=== PATIENT | male | born 1965 | race Caucasian/White ===

== ENCOUNTER 2016-11-11 15:54 | Inpatient (IN) | payer BC, OTHER ==
[2016-11-11] MEDS ORDERED: ALBUTEROL SULFATE/IPRATROPIUM 3 ML NEBU IH ONE (16:17)
--- NOTE | 2016-11-11 16:18 | ERNOTE ---
Date of Service: 11/11/16 Time Seen by Provider: 11/11/16 16:08 Stated Complaint: UPPER RESPI Presenting Symptoms:: cough Source: patient, family, RN notes reviewed Exam Limitations: no limitations Immunizations: IMMUNIZATION HX Immunizations Up to Date Yes History of Influenza Vaccine No Allergies/Adverse Reactions: Allergies No Known Allergies Allergy (Unverified 11/11/16 16:06) Home Medications: HOME MEDICATIONS NK [No Home Medication] 11/11/16 [Last Taken Unknown] - History of Present Ilness Narrative: 51 y/o male brought to the ED by his for a cough and difficulty breathing that began 6 days ago, but has become much worse today. He reports having a "cold" since 11/05 with nasal congestion, fatigue, cough and headache. He took a shower just before coming in today. This is when he became much more dyspneic and began having some chest heaviness. He has not taken any OTC meds for his symptoms today. He did take sudaphed and and Tylenol yesterday. He is a nonsmoker and takes no routine medications. 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 Date (Duration): 11/05/16 Timing: getting worse Severity: severe Frequency/Possible Cause: Reports: unknown cause Modifying Factors - Improves: Reports: rest Modifying Factors - Worsens: Reports: activity Associated Symptoms: Reports: chest pain/soreness, cough, shortness of breath, nasal congestion, nasal drainage, headache. Denies: wheezing, earache, sore throat, muscle aches, fever/chills Prior Treatment: Denies: recently seen Review of Systems - Review of Systems Constitutional: Present: fatigue, malaise. Absent: fever, chills EYE: Present: no symptoms reported ENT: Present: See HPI Respiratory: Present: See HPI Cardiology: Absent: palpitations, edema, claudication Gastrointestinal/Abdominal: Absent: nausea, vomiting, diarrhea, abdominal pain Genitourinary: Present: no symptoms reported Musculoskeletal: Present: See HPI Skin: Absent: rash, lesions, change in color Neurological: Absent: weakness, numbness, tingling Endocrine: Present: no symptoms reported Hematologic/Lymphatic: Present: no symptoms reported Psych: Absent: anxiety - Patient's Past Medical History Patient History - Medical: No pertinent hx Patient History - Cardiac/Respiratory: CVA/Stroke Patient History - Cancer: No Hx of Cancer Patient History - Surgical Procedures: Other - Repair of ASD - Social History Living Situations: spouse Does anyone smoke in the home?: No Smoking Status: Never smoker Alcohol Use: none Drug Use: none - Immunizations Immunizations Up to Date: Yes History of Influenza Vaccine: No Physical Exam - Physical Exam General Appearance: Present: wd/wn, alert, moderate distress, obese Ears, Nose, Throat: Present: hearing grossly normal, nasal congestion, pharyngeal erythema - mild. Absent: abnormal TM (R), abnormal TM (L), sinus pain/drainage Neck: Present: normal inspection, nontender, supple Respiratory: Present: chest nontender, respiratory distress, accessory muscle use, decreased breath sounds - d/t large body habitus. Absent: crackles, wheezing Cardiovascular/Chest: Present: no murmur, normal peripheral pulses, tachycardia Peripheral Pulses: N=norm/S=strong/W=weak/B=bound/A=absent: Dorsalis-pedis (R): Normal, Dorsalis-pedis (L): Normal Extremity Exam: Present: non-tender, normal range of motion, pedal edema - mild bilateral Neurological Exam: Present: alert, oriented, normal mood/affect, no motor/ sensory deficits Skin Exam: Present: warm/dry, other - grayish, dusky appearance ED Progress - Results and Orders Patient's Lab Results:: I have reviewed the patient's lab results. - Vital Signs Patient's Vital Signs:: I have reviewed the patient's vital signs. Vital Signs: Vital Signs 11/11/16 16:02 Temperature 36.7 C Pulse Rate 124 H Respiratory 20 Rate Blood Pressure 131/77 O2 Sat by Pulse 89 L Oximetry - EKG EKG: nonspecific ST T wave changes, other - Sinus tach - 117 EKG read: Interp. by me - X-Ray X-Ray #1 X-Ray: chest Interpretation: Interp. by me X-ray Comments: No focal consolidation or infiltrate, heart size appears somewhat large - CT/Ultrasound CT/Ultrasound Narrative: Chest CTA shows bilateral pulmonary emboli and "patchy ground glass opacities" per [facility] preliminary report called at 1811. - Progress/Reassessment Chief Complaint: Upper Respiratory Symptoms Progress:: Improved Plan - Plan Plan: Dr. Howard contacted regarding admission - patient to be observation status with anticoagulation for pulmonary emboli. Also to have repeat troponin as his initial was elevated at 0.258. Patient states he is feeling better since he has been receiving oxygen. Departure - Departure Clinical Impression: Elevated troponin, Acute dyspnea Pulmonary emboli Qualifiers: Pulmonary embolism type: other Chronicity: acute Acute cor pulmonale presence: without acute cor pulmonale Qualified Code(s): I26.99 - Other pulmonary embolism without acute cor pulmonale Disposition: [facility] Condition: Stable
--- OUTSIDE RECORDS SUMMARY | 2016-11-11 16:22 | XMS REPORT | Continuity of Care Document ---
:1965 Author Organization [facility] ([facility]) Address [address] [place] [address] Phone [phone] Care Team Providers Name Role Phone Unavailable Primary Care Provider Unavailable Source Comments This disclosure is being made pursuant to the Care Everywhere program, applicable federal and state laws, and may not contain all informaitonavailable regarding this patient.[facility] ([facility]) Active Allergies and Adverse Reactions Not on File Current Medications Not on file Active Problems Not on file Social History Tobacco Use Types Packs/Day Years Used Date Never Assessed Plan of Care Health Maintenance Due Date Last Done Comments HCV Screening 1965 Hepatitis B Vaccine (1 of 3 - Primary Series) 1965 Tdap Vaccine 1974 Lipid Disorder Screening 1981 MMR Vaccine 1981 Td Vaccine 1981 Colonoscopy 03/11/2013 Prostate Cancer Screening 2013 Influenza Vaccine: Seasonal (#1) 04/16/2016 Results from Last 3 Months Not on file
[2016-11-11 16:32] LABS: Hematocrit 50.1 % (42.0-52.0); Hemoglobin 16.8 gm/dL (13.5-18.0); Mean Cell Volume 84.6 fl (78-100); Mean Corpuscular Hemoglobin 28.4 pg (27-31); Mean Corpuscular Hgb Conc 33.5 g/dl (32-36); Mean Platelet Volume 9.6 fl (6.0-9.5); Neutrophil % 83.6 % (42-75.0); Platelet Count 125 K/mm3 (150-450); Red Blood Count 5.92 M/mm3 (4.7-6.0); Red Cell Distribution Width 12.7 % (11.5-14.0); White Blood Count 11.9 K/mm3 (4.0-10.5)
[2016-11-11 16:49] LABS: Albumin * 3.9 gm/dl (3.4-5.0); Anion Gap 15.5 mmol/L (6.8-13.8); BUN/Creatinine Ratio 8.7 (9.0-21.6); Bilirubin, Total 0.6 mg/dL (0.0-1.1); Ca. Corrected For Albumin 8.5 mg/dL (8.4-10.2); Calcium * 8.7 mg/dL (7.9-10.9); Carbon Dioxide 25.3 mmol/L (24-32.6); Potassium 3.8 mmol/L (3.4-4.6); Total Protein 7.8 gm/dL (6.2-8.2)
[2016-11-11 16:50] LABS: Troponin I 0.258 ng/ml (0.00-0.10)
[2016-11-11] MEDS ORDERED: MORPHINE SULFATE 2 MG/ML DISP.SYRIN IV ONE (16:58)
[2016-11-11] MEDS ORDERED: ONDANSETRON HCL/PF 2 MG/ML VIAL IV ONE (16:58)
[2016-11-11] MEDS ORDERED: ASPIRIN 81 MG TAB.CHEW PO ONE (16:59)
[2016-11-11] MEDS ORDERED: ONDANSETRON HCL/PF 2 MG/ML VIAL ONE (17:04)
[2016-11-11] MEDS ORDERED: MORPHINE SULFATE 2 MG/ML DISP.SYRIN ONE (17:04)
[2016-11-11] MEDS ORDERED: ASPIRIN 81 MG TAB.CHEW ONE (17:05)
[2016-11-11 17:12] LABS: Prothrombin Time (Patient) 11.2 Seconds (9.4-11.4)
[2016-11-11 17:14] LABS: INR 1.08 INR (0.90-1.10); Partial Thrombolplastin Time 25.9 Seconds (24-32)
[2016-11-11] MEDS ORDERED: HEPARIN SODIUM,PORCINE/D5W 25,000 UNITS/500 ML BAG IV PRN ×2 (18:33→19:10)
[2016-11-11] MEDS ORDERED: HEPARIN SODIUM,PORCINE 5,000 UNITS/ML VIAL ONE ×2 (18:46→18:58)
[2016-11-11] MEDS ORDERED: HEPARIN SODIUM,PORCINE/D5W 25,000 UNITS/500 ML BAG IV ONE (18:47)
--- OUTSIDE RECORDS SUMMARY | 2016-11-11 18:47 | XMS REPORT | Continuity of Care Document ---
:1965 Author Organization [facility] ([facility]) Address [address] [place] [address] Phone [phone] Care Team Providers Name Role Phone Unavailable Primary Care Provider Unavailable Source Comments This disclosure is being made pursuant to the Care Everywhere program, applicable federal and state laws, and may not contain all informaitonavailable regarding this patient.[facility] ([facility]) Active Allergies and Adverse Reactions Not [...]
[2016-11-11] MEDS: HEPARIN SODIUM,PORCINE 5,000 UNITS/ML VIAL IV ONE ×2 (19:01→19:21)
[2016-11-11] MEDS ORDERED: HEPARIN SODIUM,PORCINE 10,000 UNITS/ML VIAL IV ONE (19:03)
[2016-11-11] MEDS ORDERED: HEPARIN SODIUM,PORCINE/D5W 25,000 UNITS/500 ML BAG IV SCH (19:30)
[2016-11-11] MEDS ORDERED: NORMAL SALINE 1,000 ML IV PRN (20:18)
--- NOTE | 2016-11-11 20:53 | HP ---
<Ruth Wood - Last Filed: 11/11/16 23:18> Chief Complaint - Chief Complaint Date of Service: 11/11/16 Time of Service: 20:46 Chief Complaint: " SOB". Source of HPI-Pt; reliable, Pt's spouse AmitaRAYA report. History of Present Illness: Mr. Osorio is a 51-yr-old WM pt who has no pertinent medical history except for CVA at age 20 secondary to Atrial Septal defect. He later had an Open Heart Surgery at age 25 to repair the defect. Pt states that for the last 1 month, he has struggled with URI symptoms "on and off." On Saturday, the symptoms came back and were mostly accompanied with headaches, nasal congestion and drainage and are still going on. He took a 'day off ' from work on Saturday but he was able to report to work the rest of the days. On Saturday, he sat around most of the day as he was not feeling any better. Today at about 1 pm after taking a shower, he suddenly felt extremely SOB. It was severe enough that he chose to come to the [facility] ER. He denies the associated symptoms of N/V, Diaphoresis Palpitations and Chest Pain. He is a non- smoker and denies being on any new medications. He has not had any recent surgery procedure and denies any travelling that involves prolong sitting. Family history is negative for clotting factor disease. is at bedside and she stated that he believes pt has Sleep Apnea. She reports that pt has been sleeping on the recliner for about 2 yrs. Pt states that he has a deviated septum which prevents him from sleeping well on the bed. also reports that he does have snoring at night. During evaluation at the ED, he was noted to have an elevated D-Dimer of 9.47. The CT of the chest revealed he had Reginald. Pulmonary Embolism. His Troponin was elevated at 0.258 and the EKG showed Sinus Tachycardia without ST-T wave changes. Pt will need to be admitted to inpatient status for a minimum of 2 midnights or more due to Reginald. Pulmonary Embolism. - Patient's Past Medical History Patient History - Medical: No pertinent hx Patient History - Cardiac/Respiratory: CVA/Stroke, Other Patient History - Cancer: No Hx of Cancer Patient History - Surgical Procedures: Other Patient History - Other: None - Family History Father Family History - Medical: , Diabetes Type 2 Insulin Dependent Family History - Cardiac/Respiratory: No pertinent hx Family History - Cancer: No pertinent family hx Mother Family History - Medical: No pertinent hx Family History - Cardiac/Respiratory: Atrial Fibrillation Family History - Cancer: No pertinent family hx - Social History Living Situations: spouse Abuse History: No History of abuse Psych History: No pertinent hx Does anyone smoke in the home?: No Smoking Status: Never smoker Have you smoked in the past 12 months: No Do you dip or chew tobacco: No Alcohol Use: none Drug Use: none - Immunizations Immunizations Up to Date: Yes Hx Pneumococcal Vaccination: No History of Influenza Vaccine: No Review Of Systems (GEN) - Review of Systems Generalized/Overall Review: Absent: Weakness, Chills, Fever, Diaphoresis EENTM: Absent: Eye Pain, Blurred Vision, Double Vision, Nose Congestion Respiratory: Present: Shortness of Breath. Absent: Cough Cardiac: Absent: Chest Pain, Edema, Syncope Abdominal: Absent: Nausea, Vomiting, Abdominal Pain, Diarrhea Genitourinary: Present: Frequency. Absent: Burning, Itching, Urgency Musculoskeletal: Absent: Joint Pain, Back Pain, Joint Swelling, Muscle Pain, Neck Pain Neurological: Present: Headache. Absent: Anxiety, Emotional Problems Skin: Absent: Dryness, Lesions, Lumps Endocrine: Absent: Intolerance to Cold, Intolerance to Heat, Increased Thirst Misc: All systems neg except as marked Immunizations: IMMUNIZATION HX Immunizations Up to Date Yes History of Influenza Vaccine No Allergies/Adverse Reactions: Allergies Allergy/AdvReac Type Severity Reaction Status Date / Time No Known Allergies Allergy Unverified 11/11/16 16:06 Home Medications: HOME MEDICATIONS NK [No Home Medication] 11/11/16 [Last Taken Unknown] Exam - Exam Vital Signs: Vital Signs - Last Taken Temp 37.0 C 11/11/16 20:16 Pulse 116 H 11/11/16 20:16 Resp 22 H 11/11/16 20:16 BP 137/82 11/11/16 20:16 Pulse Ox 93 11/11/16 20:16 Constitutional: Present: Alert, Oriented x3, No distress ENT Exam: Present: normal ENT inspection, hearing grossly normal, nasal congestion, nasal drainage. Absent: dry mucous membranes Eye Exam: bilateral eye: normal inspection, PERRL Neck: Present: full range of motion, supple, normal inspection Back Exam: Present: no CVA tenderness Breasts: Present: Exam deferred Respiratory: Present: lungs clear, no accessory muscle use, No wheezing Cardiovascular/Chest: Present: normal peripheral pulses, regular rate, rhythm, no murmur Abdomen: Present: Normal bowel sounds, soft, nontender /Rectal: Present: Exam deferred Extremity: Present: normal range of motion, normal inspection, no pedal edema Skin Exam: Present: warm/dry, no cyanosis, cool/dry Lymphatic: Present: no adenopathy Neurologic: Present: no motor/sensory deficits, alert, oriented x 3 Appearance: Present: appropriate appearance, appropriate insight Eye contact: Present: cooperative, good eye contact, normal speech Thoughts: Present: normal thought pattern, no apparent hallucination Diagnostic Studies: Laboratory Results WBC 11.9 K/mm3 (4.0-10.5) H 11/11/16 16:20 RBC 5.92 M/mm3 (4.7-6.0) 11/11/16 16:20 Hgb 16.8 gm/dL (13.5-18.0) 11/11/16 16:20 Hct 50.1 % (42.0-52.0) 11/11/16 16:20 MCV 84.6 fl (78-100) 11/11/16 16:20 MCH 28.4 pg (27-31) 11/11/16 16:20 MCHC 33.5 g/dl (32-36) 11/11/16 16:20 RDW 12.7 % (11.5-14.0) 11/11/16 16:20 Plt Count 125 K/mm3 (150-450) L 11/11/16 16:20 MPV 9.6 fl (6.0-9.5) H 11/11/16 16:20 Immature Gran % (Auto) 0.40 % (0.001-0.429) 11/11/16 16:20 Immature Gran # (Auto) 0.05 K/mm3 (0.000-0.0310) H 11/11/16 16:20 Neutrophils % 83.6 % (42-75.0) H 11/11/16 16:20 Lymphocytes % 8.9 % (20-51) L 11/11/16 16:20 Monocytes % 6.6 % (0.0-9) 11/11/16 16:20 Eosinophils % 0.2 % (0.0-3.0) 11/11/16 16:20 Basophils % 0.3 % (0.0-1.0) 11/11/16 16:20 Nucleated RBC % 0.0 k/mm3 (0-1) 11/11/16 16:20 Neutrophils # 10.0 K/mm3 (1.3-6.0) H 11/11/16 16:20 Lymphocytes # 1.1 k/mm3 (1.5-3.5) L 11/11/16 16:20 Monocytes # 0.8 k/mm3 (0.0-1.0) 11/11/16 16:20 Eosinophils # 0.0 k/mm3 (0.0-0.7) 11/11/16 16:20 Absolute Basophils 0.0 k/mm3 (0.0-0.1) 11/11/16 16:20 PT 11.2 Seconds (9.4-11.4) 11/11/16 16:26 INR (Anticoag Therapy) 1.08 INR (0.90-1.10) 11/11/16 16:26 PTT (Ricky) 25.9 Seconds (24-32) 11/11/16 16:26 D-Dimer 9.47 mg/L (0.19-0.49) H 11/11/16 16:20 Sodium 139 mmol/L (132-142) 11/11/16 16:20 Plasma Sodium 140 mmol/L (130-142) 11/11/16 16:20 Potassium 3.8 mmol/L (3.4-4.6) 11/11/16 16:20 Chloride 102 mmol/L (97-106) 11/11/16 16:20 Carbon Dioxide 25.3 mmol/L (24-32.6) 11/11/16 16:20 Anion Gap 15.5 mmol/L (6.8-13.8) H 11/11/16 16:20 BUN 12 mg/dL (6-23) 11/11/16 16:20 Creatinine 1.38 mg/dL (0.4-1.4) 11/11/16 16:20 Est GFR (Non-Af Amer) 57 mL/min (60-130) L 11/11/16 16:20 BUN/Creatinine Ratio 8.7 (9.0-21.6) L 11/11/16 16:20 Random Glucose 174 mg/dL (70-110) H 11/11/16 16:20 Calcium 8.7 mg/dL (7.9-10.9) 11/11/16 16:20 Calcium Adj for Albumin 8.5 mg/dL (8.4-10.2) 11/11/16 16:20 Total Bilirubin 0.6 mg/dL (0.0-1.1) 11/11/16 16:20 AST 25 U/L (0-48) 11/11/16 16:20 ALT 52 U/L (19-67) 11/11/16 16:20 Alkaline Phosphatase 134 U/L (50-170) 11/11/16 16:20 Troponin I 0.258 ng/ml (0.00-0.10) H* 11/11/16 16:20 Total Protein 7.8 gm/dL (6.2-8.2) 11/11/16 16:20 Albumin 3.9 gm/dl (3.4-5.0) 11/11/16 16:20 Influenza Type A Ag Negative (NEGATIVE) 11/11/16 16:30 Influenza Type B Ag Negative (NEGATIVE) 11/11/16 16:30 Assessment/Plan - Assessment/Plan (1) Bilateral pulmonary embolism Assessment: Pt noted to be tachycardic, and tachypneic on presentation. NO HISTORY: of Recent surgery, new medications, Prolonged traveling causing extended immobilization. Family History negative for Clotting factor disease. who is an RN reported pt may have sleep apnea and snores at night- he has not slept in bed for 2 yrs and sleeps mostly on the recliner. He report having deviated septum. The work up evaluation showed Elevated D-dimer of 9.47. The CT of the chest findings - Extensive Bilateral arterial Emboli . Received treatment at the ED with Heparin Bolus and Hep gtt initiated. Remained hemodynamically stable. He required oxygen to keep pox > 90%. Admitted to [facility] floor floor under remote telemetry monitoring and continued anticoagulation therapy. Problem: Acute (2) Elevated troponin level Assessment: Pt is noted to be obese. Has past cardiac medical history involving: CVA at age 20 secondary to Atrial Septal defect. He later had an Open Heart Surgery at age 25 to repair the defect. The first troponin was elevated at 0.258 at 16.20, the second troponin was elevated at 0.555 at 21.30. Both EKGs at 1630 & [address]-T wave changes. The second elevated Troponin along with CT findings showing Reginald. Pulm. arterial Emboli causing a Rt Heart strain were concerning enough for pt to be transferred to a higher level of tertiary care center as he may need surgical intervention to reduce the thrombus burden. Problem: Acute <Frank Simon - Last Filed: 11/15/16 16:44> Immunizations: IMMUNIZATION HX Immunizations Up to Date Yes History of Influenza Vaccine No Hx Pneumococcal Vaccination No Exam - Exam Vital Signs: Vital Signs - Last Taken Temp 37.0 C 11/11/16 22:46 Pulse 102 H 11/11/16 22:46 Resp 18 11/11/16 22:46 BP 116/85 11/11/16 22:46 Pulse Ox 94 11/11/16 22:46 Diagnostic Studies: Laboratory Results WBC 11.9 K/mm3 (4.0-10.5) H 11/11/16 16:20 RBC 5.92 M/mm3 (4.7-6.0) 11/11/16 16:20 Hgb 16.8 gm/dL (13.5-18.0) 11/11/16 16:20 Hct 50.1 % (42.0-52.0) 11/11/16 16:20 MCV 84.6 fl (78-100) 11/11/16 16:20 MCH 28.4 pg (27-31) 11/11/16 16:20 MCHC 33.5 g/dl (32-36) 11/11/16 16:20 RDW 12.7 % (11.5-14.0) 11/11/16 16:20 Plt Count 125 K/mm3 (150-450) L 11/11/16 16:20 MPV 9.6 fl (6.0-9.5) H 11/11/16 16:20 Immature Gran % (Auto) 0.40 % (0.001-0.429) 11/11/16 16:20 Immature Gran # (Auto) 0.05 K/mm3 (0.000-0.0310) H 11/11/16 16:20 Neutrophils % 83.6 % (42-75.0) H 11/11/16 16:20 Lymphocytes % 8.9 % (20-51) L 11/11/16 16:20 Monocytes % 6.6 % (0.0-9) 11/11/16 16:20 Eosinophils % 0.2 % (0.0-3.0) 11/11/16 16:20 Basophils % 0.3 % (0.0-1.0) 11/11/16 16:20 Nucleated RBC % 0.0 k/mm3 (0-1) 11/11/16 16:20 Neutrophils # 10.0 K/mm3 (1.3-6.0) H 11/11/16 16:20 Lymphocytes # 1.1 k/mm3 (1.5-3.5) L 11/11/16 16:20 Monocytes # 0.8 k/mm3 (0.0-1.0) 11/11/16 16:20 Eosinophils # 0.0 k/mm3 (0.0-0.7) 11/11/16 16:20 Absolute Basophils 0.0 k/mm3 (0.0-0.1) 11/11/16 16:20 PT 11.2 Seconds (9.4-11.4) 11/11/16 16:26 INR (Anticoag Therapy) 1.08 INR (0.90-1.10) 11/11/16 16:26 PTT (Ricky) 25.9 Seconds (24-32) 11/11/16 16:26 D-Dimer 9.47 mg/L (0.19-0.49) H 11/11/16 16:20 Sodium 139 mmol/L (132-142) 11/11/16 16:20 Plasma Sodium 140 mmol/L (130-142) 11/11/16 16:20 Potassium 3.8 mmol/L (3.4-4.6) 11/11/16 16:20 Chloride 102 mmol/L (97-106) 11/11/16 16:20 Carbon Dioxide 25.3 mmol/L (24-32.6) 11/11/16 16:20 Anion Gap 15.5 mmol/L (6.8-13.8) H 11/11/16 16:20 BUN 12 mg/dL (6-23) 11/11/16 16:20 Creatinine 1.38 mg/dL (0.4-1.4) 11/11/16 16:20 Est GFR (Non-Af Amer) 57 mL/min (60-130) L 11/11/16 16:20 BUN/Creatinine Ratio 8.7 (9.0-21.6) L 11/11/16 16:20 Random Glucose 174 mg/dL (70-110) H 11/11/16 16:20 Calcium 8.7 mg/dL (7.9-10.9) 11/11/16 16:20 Calcium Adj for Albumin 8.5 mg/dL (8.4-10.2) 11/11/16 16:20 Total Bilirubin 0.6 mg/dL (0.0-1.1) 11/11/16 16:20 AST 25 U/L (0-48) 11/11/16 16:20 ALT 52 U/L (19-67) 11/11/16 16:20 Alkaline Phosphatase 134 U/L (50-170) 11/11/16 16:20 Troponin I 0.555 ng/ml (0.00-0.10) H* 11/11/16 21:35 Total Protein 7.8 gm/dL (6.2-8.2) 11/11/16 16:20 Albumin 3.9 gm/dl (3.4-5.0) 11/11/16 16:20 Influenza Type A Ag Negative (NEGATIVE) 11/11/16 16:30 Influenza Type B Ag Negative (NEGATIVE) 11/11/16 16:30 Assessment/Plan - Narrative Narrative: Record reviewed. I directed all of [facility]'s care for this patient. We will work on disposition further in the morning. Estimated hospital stay at least one midnight.
[2016-11-11 22:47] VITALS: BP 116/85
--- NOTE | 2016-11-11 23:41 | DS ---
<Ruth Wood - Last Filed: 11/12/16 00:31> Transfer Discharge Summary - Diagnosis(s)/Problems (1) Bilateral pulmonary embolism Problem: Acute (2) Elevated troponin level Problem: Acute - Course Description of Stay: Mr. Osorio is a 51-yr-old WM pt who has no pertinent medical history except for CVA at age 20 secondary to Atrial Septal defect. He later had an Open Heart Surgery at age 25 to repair the defect. On 11/11/16, he presented to the ED due to sudden extreme SOB that begun after taking a shower. During evaluation at the ED he was found to be Tachycardic and tachypneic. He had an elevated D- Dimer of 9.47. The CT of the chest revealed he had Reginald. Pulmonary Embolism. His Troponin was elevated at 0.258 and the EKG showed Sinus Tachycardia without ST- T wave changes. He was admitted to the Med-Surg unit under remote telemetry monitoring. He received heparin bolus at the ED and the hep. drip was initiated there as well. Pt denied having the associated symptoms of N/V, Diaphoresis, palpitations and Chest Pain. He required oxygen to keep POX > 90%. A second Troponin drawn at 21.30 was found to be elevated 0.555. Decision was made to transfer pt. The second elevated Troponin along with CT findings showing Reginald. Pulm. arterial Emboli causing a Rt Heart strain were concerning enough for pt to be transferred to a higher level of tertiary care center, as he may need surgical intervention to reduce the thrombus burden. Pt otherwise remained hemodynamically stable. I spoke with Dr. Bogdan Chamorro at the [facility] who agreed to to accept pt at the ED. Pt was airlifted at approximately 23.45. Procedures Performed: none - Medications Medications: Active Medications Heparin Sodium/Dextrose (Heparin 25,000 Units/D5w 500 Ml) 25,000 units in 500 mls @ 30 mls/hr IV Q24H DAWSON; 1,500 UNITS/HR PRN Reason: Protocol Stop: 12/11/16 19:31 Last Admin: 11/11/16 19:24 Dose: 1,500 units/hr, 30 mls/hr Sodium Chloride (Sodium Chloride 0.9%) 1,000 mls @ 125 mls/hr IV .Q8H PRN PRN Reason: HYDRATION Stop: 12/11/16 20:19 Last Admin: 11/11/16 20:46 Dose: 125 mls/hr Discontinued Medications Albuterol/Ipratropium (Duoneb 2.5-0.5mg/3ml Soln) 3 ml IH ONCE ONE Stop: 11/11/16 16:18 Last Admin: 11/11/16 18:44 Dose: Not Given Aspirin (Aspirin Chewable) 324 mg PO ONCE ONE Stop: 11/11/16 17:00 Last Admin: 11/11/16 17:10 Dose: 324 mg Heparin Sodium (Porcine) (Heparin Sodium) 5,000 units IV ONCE ONE Stop: 11/11/16 18:34 Last Admin: 11/11/16 19:01 Dose: Not Given Heparin Sodium (Porcine) (Heparin Sodium) 10,000 units IV ONCE ONE Stop: 11/11/16 19:04 Last Admin: 11/11/16 19:22 Dose: 10,000 units Morphine Sulfate (Morphine Sulfate) 2 mg IV ONCE ONE Stop: 11/11/16 16:59 Last Admin: 11/11/16 17:15 Dose: 2 mg Ondansetron HCl (Zofran) 4 mg IV ONCE ONE Stop: 11/11/16 16:59 Last Admin: 11/11/16 17:14 Dose: 4 mg - Disposition Disposition: [facility] Condition: Good <Frank Simon - Last Filed: 11/15/16 16:46> Transfer Discharge Summary - Course Description of Stay: I personally directed all of [facility]'s care for this patient. I agree with the plan for transfer to a higher level of care. - Medications Medications: Active Medications Discontinued Medications Albuterol/Ipratropium (Duoneb 2.5-0.5mg/3ml Soln) 3 ml IH ONCE ONE Stop: 11/11/16 16:18 Last Admin: 11/11/16 18:44 Dose: Not Given Aspirin (Aspirin Chewable) 324 mg PO ONCE ONE Stop: 11/11/16 17:00 Last Admin: 11/11/16 17:10 Dose: 324 mg Heparin Sodium (Porcine) (Heparin Sodium) 5,000 units IV ONCE ONE Stop: 11/11/16 18:34 Last Admin: 11/11/16 19:01 Dose: Not Given Heparin Sodium (Porcine) (Heparin Sodium) 10,000 units IV ONCE ONE Stop: 11/11/16 19:04 Last Admin: 11/11/16 19:22 Dose: 10,000 units Heparin Sodium/Dextrose (Heparin 25,000 Units/D5w 500 Ml) 25,000 units in 500 mls @ 30 mls/hr IV Q24H DAWSON; 1,500 UNITS/HR PRN Reason: Protocol Stop: 12/11/16 19:31 Last Admin: 11/11/16 19:24 Dose: 1,500 units/hr, 30 mls/hr Sodium Chloride (Sodium Chloride 0.9%) 1,000 mls @ 125 mls/hr IV .Q8H PRN PRN Reason: HYDRATION Stop: 12/11/16 20:19 Last Admin: 11/11/16 20:46 Dose: 125 mls/hr Morphine Sulfate (Morphine Sulfate) 2 mg IV ONCE ONE Stop: 11/11/16 16:59 Last Admin: 11/11/16 17:15 Dose: 2 mg Ondansetron HCl (Zofran) 4 mg IV ONCE ONE Stop: 11/11/16 16:59 Last Admin: 11/11/16 17:14 Dose: 4 mg
== END 2016-11-11 23:55 | disposition short-term general hospital (02) | DRG 176 ==
LOC: ER 15:54 → MS 18:43 → OBSVTOIN 21:42
PROVIDERS: ADMIT Allergy & Immunology; ATTEND Allergy & Immunology
DX: I26.99 Other pulmonary embolism without acute cor pulmonale (principal); R79.89 Other specified abnormal findings of blood chemistry; R00.0 Tachycardia, unspecified; Z86.73 Personal history of transient ischemic attack (TIA), and cerebral infarction without residual deficits